=== PATIENT | male | born 1965 | race Caucasian/White ===

== ENCOUNTER 2022-12-04 13:15 | Inpatient (IN) ==
[2022-12-04 18:16] LABS: Albumin 3.9 g/dL (3.2-5.2); Anion Gap 7 mmol/L (2-16); CO2 Carbon Dioxide 33 mmol/L (22-32); Calcium 9.2 mg/dL (8.6-10.3); Chloride 97 mmol/L (101-111); Magnesium 2.5 mg/dL (1.9-2.7); Potassium 5.3 mmol/L (3.5-5.0); Sodium 137 mmol/L (135-145)
[2022-12-04 18:22] LABS: ALT 13 U/L (7-52); AST 11 U/L (13-39); Albumin/Globulin Ratio 1.2 (1-3); Alkaline Phosphatase 74 U/L (35-149); Blood Urea Nitrogen 53 mg/dL (6-24); Creatinine, Serum 1.56 mg/dL (0.67-1.17); Globulin 3.2 g/dL (2-4); Glucose 252 mg/dL (70-100); Total Protein 7.1 g/dL (6.4-8.9); eGFR CKD-EPI 51.5 (>60)
[2022-12-04 18:54] LABS: C Reactive Protein 9.14 mg/L (<8.01)
[2022-12-04 19:01] LABS: Acetaminophen < 15 mcg/mL; Alcohol, S < 13 mg/dL (<13); Salicylate < 2.50 mg/dL (<30)
[2022-12-04 19:06] LABS: ABS Lymphocytes 0.8 10^3/uL (1.0-4.8); ABS Neutrophils 6.6 10^3/uL (1.5-7.6); Eosinophil % 0.2 %; Lymphocyte % 9.3 %
[2022-12-04 19:07] LABS: Hematocrit 56.3 % (38-53); Hemoglobin 18.1 g/dL (13.2-16.3); Mean Corpuscular Hemoglobin 28.4 pg (27-33); Mean Corpuscular Hgb Conc 32.2 g/dL (31-36); Mean Corpuscular Volume 88.3 fL (80-97); Mean Platelet Volume 10.6 fL (7.5-11.2); Platelet Count 141 10^3/uL (150-450); Red Blood Count 6.38 10^6/uL (4.06-5.63); Red Cell Distribution Width 17.1 % (12-17); White Blood Count 8.4 10^3/uL (3.6-10.2)
[2022-12-04 20:11] LABS: Urine Appearance Clear; Urine Bilirubin Negative (Negative); Urine Blood Negative (Negative); Urine Color Yellow; Urine Glucose 3+(>=500 mg/dL) (Negative); Urine Ketones Negative (Negative); Urine Nitrite Negative (Negative); Urine Protein 1+(30 mg/dL) (Negative); Urine Specific Gravity 1.022 (1.002-1.030); Urine Urobilinogen Negative (Negative)
[2022-12-04 20:14] LABS: Urine Bacteria Absent (Absent); Urine Red Blood Cell Trace(0-2/hpf) (Absent); Urine White Blood Cell Trace(0-5/hpf) (Absent)
[2022-12-04 20:44] LABS: Urine Benzodiazepine Screen None Detected (None Detect); Urine Cannabinoids Screen None Detected (None Detect); Urine Opiates Screen None Detected (None Detect)
[2022-12-04] MEDS: Lactated Ringers 1000 ml BAG 1,000 ML IV SCH ×2 (20:50→22:53)
[2022-12-04] MEDS ORDERED: Furosemide 20 mg/2 ml IV VIAL IV SLOW PU ONE (22:09)
[2022-12-04 22:51] LABS: PCO2 Arterial 81 mmHg (35-45); PO2 Arterial 56 mmHg (80-100)
[2022-12-05] MEDS ORDERED: Dextrose 50% Syringe 50 ml 25 GM/50 ML SYRINGE IV PUSH PRN (00:26)
[2022-12-05 01:12] LABS: Calcium 8.6 mg/dL (8.6-10.3); Creatinine, Serum 1.45 mg/dL (0.67-1.17); Potassium 5.1 mmol/L (3.5-5.0); eGFR CKD-EPI 56.2 (>60)
[2022-12-05 01:18] LABS: Resp Rate 16
[2022-12-05 01:20] LABS: PO2 Arterial 150 mmHg (80-100)
[2022-12-05 01:26] LABS: PCO2 Arterial > 100 mmHg (35-45)
[2022-12-05] MEDS ORDERED: Furosemide 20 mg/2 ml IV VIAL IV SLOW PU ONE (01:30)
[2022-12-05] MEDS: Albuterol/Ipratropium NEB.SOL (2.5/0.5 MG) 3 ML NEB.SOLN INH SCH (02:50)
[2022-12-05 03:56] LABS: Magnesium 2.3 mg/dL (1.9-2.7); Phosphorus 5.5 mg/dL (2.5-5.0)
[2022-12-05 03:59] LABS: PO2 Arterial 95 mmHg (80-100)
[2022-12-05 04:02] LABS: PCO2 Arterial 77 mmHg (35-45)
[2022-12-05 04:49] LABS: ABS Lymphocytes 0.9 10^3/uL (1.0-4.8); ABS Nucleated RBC 0.05 10^3/ul; Eosinophil % 0.3 %; Hematocrit 51.8 % (38-53); Hemoglobin 16.6 g/dL (13.2-16.3); Lymphocyte % 11.3 %; Mean Corpuscular Hemoglobin 28.2 pg (27-33); Mean Corpuscular Hgb Conc 32.1 g/dL (31-36); Mean Corpuscular Volume 88.1 fL (80-97); Mean Platelet Volume 10.7 fL (7.5-11.2); Nucleated Red Blood Cells % 0.6 /100 WBC (0.0-0.4); Platelet Count 134 10^3/uL (150-450); Red Blood Count 5.88 10^6/uL (4.06-5.63); Red Cell Distribution Width 16.8 % (12-17); White Blood Count 7.9 10^3/uL (3.6-10.2)
[2022-12-05] MEDS ORDERED: Albuterol/Ipratropium NEB.SOL (2.5/0.5 MG) 3 ML NEB.SOLN INH SCH ×3 (05:00→13:00)
[2022-12-05 05:07] LABS: Calcium 8.5 mg/dL (8.6-10.3); Creatinine, Serum 1.44 mg/dL (0.67-1.17); Magnesium 2.2 mg/dL (1.9-2.7); Potassium 4.9 mmol/L (3.5-5.0); eGFR CKD-EPI 56.7 (>60)
[2022-12-05 05:11] LABS: High Sensitivity Troponin 1 Hr 20 pg/mL (<20)
[2022-12-05] MEDS: Heparin 5000 UNITS/ML 1 mL VIAL SUBCUT SCH ×3 (06:09→20:51)
[2022-12-05] MEDS ORDERED: Sulfur Hexaflouride MICROSPHR 25 MG VIAL ONE (10:04)
[2022-12-05] MEDS ORDERED: Albuterol/Ipratropium NEB.SOL (2.5/0.5 MG) 3 ML NEB.SOLN INH PRN (11:45)
[2022-12-05] MEDS ORDERED: Clotrimazole 1% CREAM 30 gm TOPICAL PRN (13:45)
[2022-12-06 04:31] LABS: ABS Eosinophils 0.1 10^3/uL (0.0-0.5); ABS Lymphocytes 0.7 10^3/uL (1.0-4.8); ABS Monocytes 0.7 10^3/uL (0.0-1.1); ABS Neutrophils 4.8 10^3/uL (1.5-7.6); ABS Nucleated RBC 0.02 10^3/ul; Eosinophil % 0.8 %; Hematocrit 48.3 % (38-53); Hemoglobin 15.2 g/dL (13.2-16.3); Lymphocyte % 11.5 %; Mean Corpuscular Hgb Conc 31.6 g/dL (31-36); Mean Corpuscular Volume 88.6 fL (80-97); Mean Platelet Volume 10.1 fL (7.5-11.2); Nucleated Red Blood Cells % 0.4 /100 WBC (0.0-0.4); Platelet Count 119 10^3/uL (150-450); Red Blood Count 5.45 10^6/uL (4.06-5.63); Red Cell Distribution Width 17.1 % (12-17); White Blood Count 6.3 10^3/uL (3.6-10.2)
[2022-12-06 04:44] LABS: Calcium 8.2 mg/dL (8.6-10.3); Creatinine, Serum 1.24 mg/dL (0.67-1.17); Magnesium 2.1 mg/dL (1.9-2.7); Potassium 4.9 mmol/L (3.5-5.0); eGFR CKD-EPI 67.8 (>60)
[2022-12-06] MEDS: Heparin 5000 UNITS/ML 1 mL VIAL SUBCUT SCH ×3 (05:07→21:32)
[2022-12-06] MEDS ORDERED: Furosemide 20 mg/2 ml IV VIAL IV SLOW PU ONE (08:36)
[2022-12-07 05:07] LABS: Calcium 8.3 mg/dL (8.6-10.3); Magnesium 1.8 mg/dL (1.9-2.7); Potassium 4.5 mmol/L (3.5-5.0)
[2022-12-07 05:13] LABS: Creatinine, Serum 0.98 mg/dL (0.67-1.17); eGFR CKD-EPI 89.9 (>60)
[2022-12-07] MEDS ORDERED: Magnesium Sulfate 2 gm BAG 2 GM/50 ML BAG IVPB ONE (05:13)
[2022-12-07] MEDS: Heparin 5000 UNITS/ML 1 mL VIAL SUBCUT SCH ×3 (05:37→21:37)
[2022-12-07 05:39] LABS: PO2 Arterial 74 mmHg (80-100)
[2022-12-07 05:43] LABS: PCO2 Arterial 89 mmHg (35-45)
[2022-12-07] MEDS ORDERED: Furosemide 20 mg/2 ml IV VIAL IV SLOW PU ONE (09:21)
[2022-12-08 04:50] LABS: ABS Eosinophils 0.1 10^3/uL (0.0-0.5); ABS Lymphocytes 0.6 10^3/uL (1.0-4.8); ABS Monocytes 0.7 10^3/uL (0.0-1.1); ABS Nucleated RBC 0.02 10^3/ul; Eosinophil % 1.8 %; Hematocrit 48.2 % (38-53); Hemoglobin 15.4 g/dL (13.2-16.3); Lymphocyte % 10.8 %; Mean Corpuscular Hemoglobin 27.9 pg (27-33); Mean Corpuscular Volume 87.4 fL (80-97); Mean Platelet Volume 10.4 fL (7.5-11.2); Nucleated Red Blood Cells % 0.3 /100 WBC (0.0-0.4); Platelet Count 104 10^3/uL (150-450); Red Blood Count 5.51 10^6/uL (4.06-5.63); Red Cell Distribution Width 16.5 % (12-17); White Blood Count 5.4 10^3/uL (3.6-10.2)
[2022-12-08 05:05] LABS: Calcium 8.4 mg/dL (8.6-10.3); Magnesium 1.9 mg/dL (1.9-2.7); Potassium 4.5 mmol/L (3.5-5.0)
[2022-12-08 05:11] LABS: Creatinine, Serum 0.79 mg/dL (0.67-1.17); eGFR CKD-EPI 103.6 (>60)
[2022-12-08] MEDS: Heparin 5000 UNITS/ML 1 mL VIAL SUBCUT SCH ×3 (05:23→21:27)
[2022-12-08] MEDS: Albuterol/Ipratropium NEB.SOL (2.5/0.5 MG) 3 ML NEB.SOLN INH SCH ×3 (12:06→19:06)
[2022-12-08] MEDS ORDERED: Senna TAB 8.6 mg TAB PO PRN (21:40)
[2022-12-09] MEDS: Heparin 5000 UNITS/ML 1 mL VIAL SUBCUT SCH ×3 (05:18→21:58)
[2022-12-09] MEDS: Albuterol/Ipratropium NEB.SOL (2.5/0.5 MG) 3 ML NEB.SOLN INH SCH (08:17)
[2022-12-09] MEDS ORDERED: Albuterol/Ipratropium NEB.SOL (2.5/0.5 MG) 3 ML NEB.SOLN INH PRN (12:18)
[2022-12-09] MEDS ORDERED: Albuterol/Ipratropium NEB.SOL (2.5/0.5 MG) 3 ML NEB.SOLN INH SCH (13:00)
[2022-12-09] MEDS: Empagliflozin 25 MG TAB PO SCH (15:58)
[2022-12-10] MEDS: Heparin 5000 UNITS/ML 1 mL VIAL SUBCUT SCH ×3 (05:08→22:05)
[2022-12-10 06:37] LABS: Calcium 8.7 mg/dL (8.6-10.3); Creatinine, Serum 0.77 mg/dL (0.67-1.17); Magnesium 1.7 mg/dL (1.9-2.7); Potassium 4.3 mmol/L (3.5-5.0); eGFR CKD-EPI 104.4 (>60)
[2022-12-10] MEDS ORDERED: Magnesium Sulfate IV 3 GM in NS 0.9% 100 ml BAG 100 ML IVPB ONE (07:15)
[2022-12-10] MEDS ORDERED: Nystatin TOP POWDER 15 GM BTL TOPICAL SCH (09:00)
[2022-12-10] MEDS: Empagliflozin 25 MG TAB PO SCH (09:17)
[2022-12-11] MEDS: Heparin 5000 UNITS/ML 1 mL VIAL SUBCUT SCH ×2 (06:01→16:41)
[2022-12-11 09:31] LABS: Calcium 8.8 mg/dL (8.6-10.3); Creatinine, Serum 0.72 mg/dL (0.67-1.17); Magnesium 1.9 mg/dL (1.9-2.7); Potassium 4.5 mmol/L (3.5-5.0); eGFR CKD-EPI 106.6 (>60)
[2022-12-11] MEDS: Empagliflozin 25 MG TAB PO SCH (09:40)
[2022-12-11 10:42] VITALS: BP 135/76
== END 2022-12-11 16:30 | DRG 189 ==
LOC: ED 13:15 → SUATTDRO 23:33 → EDHOLD 23:54 → ICU 12-05 02:21 → MED 12-08 14:52
PROVIDERS: ADMIT Internal Medicine Critical Care Medicine; ATTEND Internal Medicine